=== PATIENT | female | born 1995 | race American Indian/Alaskan Native ===

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

== ENCOUNTER 2018-05-31 14:35 | Emergency (ER) | payer MEDICAID ==
[2018-05-31 16:18] VITALS: BP 136/79
--- NOTE | 2018-05-31 17:35 | EDM.PDOC ---
ED HPI GENERAL MEDICAL PROBLEM - General Chief Complaint: Respiratory Problem Stated Complaint: CHEST CONGESTION Time Seen by Provider: 05/31/18 17:32 Source of Information: Reports: Patient History Limitations: Reports: No Limitations - History of Present Illness INITIAL COMMENTS - FREE TEXT/NARRATIVE: pt has had a cough and body aches for the past 2 days. . She does not have a sore throat. Onset: Other ( 2 days ago. ) Duration: Hour(s): Location: Reports: Chest, Generalized Associated Symptoms: Reports: Cough, Other (pt did cough up some pinkish mucous. ) - Related Data Allergies Allergy/AdvReac Type Severity Reaction Status Date / Time amoxicillin [Amoxicillin] Allergy Hives Verified 03/19/18 22:12 cefprozil [From Cefzil] Allergy Hives Verified 03/19/18 22:12 walnuts Allergy Hives Uncoded 03/20/18 07:46 Home Meds: Home Meds Ibuprofen 400 mg PO DAILY PRN 03/20/18 [History] Acetaminophen/HYDROcodone [Louin 325-5 MG] 1 - 2 tab PO Q4H PRN #40 tab [Rx] Past Medical History - Past Health History Medical/Surgical History: Denies Medical/Surgical History HEENT History: Reports: Impaired Vision, Otitis Media, Other (See Below) Other HEENT History: frequent strep throat; wears glasses Respiratory History: Reports: Asthma Gastrointestinal History: Reports: Cholelithiasis Musculoskeletal History: Reports: Fracture Psychiatric History: Reports: Anxiety, Depression, Panic Attack, Psych Hospitalization(s), Suicide Attempt Endocrine/Metabolic History: Reports: Obesity/BMI 30+, Other (See Below) Other Endocrine/Metabolic History: hypoglycemic - Infectious Disease History Infectious Disease History: Reports: None - Past Surgical History HEENT Surgical History: Reports: None Respiratory Surgical History: Reports: None GI Surgical History: Reports: None Endocrine Surgical History: Reports: None Musculoskeletal Surgical History: Reports: None Dermatological Surgical History: Reports: None Social & Family History - Family History HEENT: Reports: Cataract Cardiac: Reports: HI GI: Reports: Cholelithiasis Musculoskeletal: Reports: Arthritis Neurological: Reports: Dementia Psychiatric: Reports: Depression Endocrine/Metabolic: Reports: Diabetes, Type I Immunologic: Reports: SLE Dermatologic: Reports: Eczema Oncologic: Reports: Breast - Caffeine Use Caffeine Use: Reports: Coffee - Recreational Drug Use Recreational Drug Use: No - Living Situation & Occupation Living situation: Reports: Single Occupation: Employed ED ROS GENERAL - Review of Systems Review Of Systems: See Below Constitutional: Reports: Other (pt has had a low grade temp. ) HEENT: Reports: No Symptoms Respiratory: Reports: Cough, Sputum Cardiovascular: Reports: No Symptoms Endocrine: Reports: No Symptoms GI/Abdominal: Reports: No Symptoms : Reports: No Symptoms Musculoskeletal: Reports: No Symptoms ED EXAM, GENERAL - Physical Exam Exam: See Below Free Text/Narrative:: pt has a temp of 37. She has been coughing up some bloody sputum. . She has been coughing alot. Exam Limited By: No Limitations General Appearance: Alert, Anxious Ears: Normal TMs Nose: Normal Inspection Throat/Mouth: Normal Inspection Head: Atraumatic Neck: Normal Inspection Respiratory/Chest: Decreased Breath Sounds, Rhonchi Cardiovascular: Regular Rate, Rhythm GI/Abdominal: Soft, Non-Tender Course - Vital Signs Last Recorded V/S: Last Vital Signs Temp 37.6 C 05/31/18 16:18 Pulse 63 05/31/18 16:18 Resp 16 05/31/18 16:18 BP 136/79 05/31/18 16:18 Pulse Ox 99 05/31/18 16:18 - Orders/Labs/Meds Orders: Active Orders 24 hr Category Date Time Status Chest 2V [CR] Stat Exams 05/31/18 17:35 Ordered Labs: Laboratory Tests 05/31/18 Range/Units 17:44 WBC 6.1 (4.5-11.0) K/uL RBC 4.66 (3.30-5.50) M/uL Hgb 14.5 (12.0-15.0) g/dL Hct 44.5 (36.0-48.0) % MCV 96 (80-98) fL MCH 31 (27-31) pg MCHC 33 (32-36) % Plt Count 327 (150-400) K/uL Neut % (Auto) 60 (36-66) % Lymph % (Auto) 26 (24-44) % Sumner % (Auto) 10 H (2-6) % Eos % (Auto) 3 (2-4) % Baso % (Auto) 1 (0-1) % - Re-Assessments/Exams Free Text/Narrative Re-Assessment/Exam: 05/31/18 18:01 influ neg, , wbc is normal, Her chest xray did not show a infiltrate. Departure - Departure Time of Disposition: 18:03 Disposition: Home, Self-Care 01 Condition: Fair Clinical Impression: Bronchitis - Discharge Information Referrals: Oly Crockett CNM [Primary Care Provider] - Forms: ED Department Discharge Care Plan Goals: cool mist humidifier, zithromax, robitussin ac 2 tsp q6h prn for cough, no work tomorrow. - My Orders Last 24 Hours: My Active Orders 05/31/18 17:35 Chest 2V [CR] Stat - Assessment/Plan Last 24 Hours: My Active Orders 05/31/18 17:35 Chest 2V [CR] Stat
== END 2018-05-31 18:19 | disposition home or self-care (01) ==
LOC: JP.ED 14:35
DX: J40 Bronchitis, not specified as acute or chronic (principal); Z88.1 Allergy status to other antibiotic agents; Z88.8 Allergy status to other drugs, medicaments and biological substances; Z79.899 Other long term (current) drug therapy
CPT/HCPCS: 36415; 71046; 85025; 87804; 87804-59; 99283; 99284

== ENCOUNTER 2018-06-06 09:01 | Emergency (ER) | payer MEDICAID ==
[2018-06-06 09:15] VITALS: BP 128/70
--- NOTE | 2018-06-06 09:56 | EDM.PDOC ---
ED HPI GENERAL MEDICAL PROBLEM - General Chief Complaint: Respiratory Problem Stated Complaint: HERE JAMMIE,BRONCITIS-NOT BETTER Time Seen by Provider: 06/06/18 09:34 Source of Information: Reports: Patient History Limitations: Reports: No Limitations - History of Present Illness INITIAL COMMENTS - FREE TEXT/NARRATIVE: This patient has been sick for about a week with some cough and upper respiratory symptoms area she was seen in the emergency room recently and put on azithromycin for bronchitis. She had a normal chest x-ray and CBC that showed some increased monocytes. Her cough is productive of some pink tinged sputum. She started having some body aches now but no actual fever. She feels like she hasn't gotten any better but now she gets some kind of burning pain in her center of her chest with coughing. Body aches seem to be new. - Related Data Allergies Allergy/AdvReac Type Severity Reaction Status Date / Time amoxicillin [Amoxicillin] Allergy Hives Verified 06/06/18 09:12 cefprozil [From Cefzil] Allergy Hives Verified 06/06/18 09:12 walnuts Allergy Hives Uncoded 06/06/18 09:12 Home Meds: Home Meds Ibuprofen 400 mg PO DAILY PRN 03/20/18 [History] Past Medical History - Past Health History Medical/Surgical History: Denies Medical/Surgical History HEENT History: Reports: Impaired Vision, Otitis Media, Other (See Below) Other HEENT History: frequent strep throat; wears glasses Respiratory History: Reports: Asthma Gastrointestinal History: Reports: Cholelithiasis Musculoskeletal History: Reports: Fracture Psychiatric History: Reports: Anxiety, Depression, Panic Attack, Psych Hospitalization(s), Suicide Attempt Endocrine/Metabolic History: Reports: Obesity/BMI 30+, Other (See Below) Other Endocrine/Metabolic History: hypoglycemic - Infectious Disease History Infectious Disease History: Reports: None - Past Surgical History Head Surgeries/Procedures: Reports: None HEENT Surgical History: Reports: None Respiratory Surgical History: Reports: None GI Surgical History: Reports: Cholecystectomy Endocrine Surgical History: Reports: None Musculoskeletal Surgical History: Reports: None Dermatological Surgical History: Reports: None Social & Family History - Family History HEENT: Reports: Cataract Cardiac: Reports: [place] GI: Reports: Cholelithiasis Musculoskeletal: Reports: Arthritis Neurological: Reports: Dementia Psychiatric: Reports: Depression Endocrine/Metabolic: Reports: Diabetes, Type I Immunologic: Reports: SLE Dermatologic: Reports: Eczema Oncologic: Reports: Breast - Tobacco Use Smoking Status *Q: Never Smoker Second Hand Smoke Exposure: No - Caffeine Use Caffeine Use: Reports: Coffee - Recreational Drug Use Recreational Drug Use: No - Living Situation & Occupation Living situation: Reports: Single Occupation: Employed ED ROS GENERAL - Review of Systems Review Of Systems: See Below Constitutional: Reports: No Symptoms HEENT: Reports: No Symptoms Respiratory: Reports: Cough, Sputum Cardiovascular: Reports: Chest Pain Endocrine: Reports: No Symptoms GI/Abdominal: Reports: No Symptoms : Reports: No Symptoms Musculoskeletal: Reports: Muscle Pain Skin: Reports: No Symptoms Neurological: Reports: No Symptoms Psychiatric: Reports: No Symptoms ED EXAM, GENERAL - Physical Exam Exam: See Below Exam Limited By: No Limitations General Appearance: Alert, No Apparent Distress, Obese Eye Exam: Bilateral Eye: Normal Inspection Throat/Mouth: Other (Tonsils enlarged but no erythema or exudate) Neck: Normal Inspection Respiratory/Chest: Lungs Clear Cardiovascular: Regular Rate, Rhythm, No Murmur Extremities: Normal Inspection Neurological: Alert Psychiatric: Normal Affect Skin Exam: Warm, Dry Course - Vital Signs Last Recorded V/S: Last Vital Signs Temp 35.8 C 06/06/18 09:15 Pulse 75 06/06/18 09:15 Resp 16 06/06/18 09:15 BP 128/70 06/06/18 09:15 Pulse Ox 96 06/06/18 09:15 - Re-Assessments/Exams Free Text/Narrative Re-Assessment/Exam: 06/06/18 09:53 I explained that this is a viral upper respiratory infection that antibiotics probably are not going to help much. The cough may go on for 4-6 weeks. Cough medication may help with some symptoms. Departure - Departure Time of Disposition: 09:54 Disposition: Home, Self-Care 01 Condition: Fair Clinical Impression: Viral upper respiratory tract infection with cough - Discharge Information Referrals: Oly Crockett CNM [Primary Care Provider] - Additional Instructions: Continue taking a second course of azithromycin. This can be taken just one tablet per day. Expect the cough to go on for several more weeks. It should gradually get better. Note that one ingredient in the cough medication will call me her cough but the other ingredient, guaifenesin, actually increases for flow which can make you cough. If you're getting worse developing I a high fever and so forth naturally see your Dr. or health care provider or return to the ER.
== END 2018-06-06 10:14 | disposition home or self-care (01) ==
LOC: JP.ED 09:01
DX: J06.9 Acute upper respiratory infection, unspecified (principal); Z79.899 Other long term (current) drug therapy; Z91.018 Allergy to other foods; Z88.1 Allergy status to other antibiotic agents
CPT/HCPCS: 99283

== ENCOUNTER 2021-11-05 20:16 | Emergency (ER) | payer MEDICAID ==
[2021-11-05 21:18] VITALS: BP 143/84; PULSE 96
== END 2021-11-05 22:10 | disposition home or self-care (01) ==
LOC: JP.ED 20:16
DX: S86.912A Strain of unspecified muscle(s) and tendon(s) at lower leg level, left leg, initial encounter (principal); E66.9 Obesity, unspecified; Z68.42 Body mass index [BMI] 45.0-49.9, adult; Z88.0 Allergy status to penicillin; Z88.1 Allergy status to other antibiotic agents; Z91.018 Allergy to other foods; Z90.49 Acquired absence of other specified parts of digestive tract; W01.0XXA Fall on same level from slipping, tripping and stumbling without subsequent striking against object, initial encounter
CPT/HCPCS: 99283